=== PATIENT | male | born 1940 | race Caucasian/White ===

== ENCOUNTER 2016-08-19 11:32 | Outpatient (CLI) | payer MEDICARE, OTHER | END 2016-08-19 11:33 | disposition home or self-care (01) | DX: Z79.899 Other long term (current) drug therapy (principal); I10 Essential (primary) hypertension; E78.5 Hyperlipidemia, unspecified; R73.09 Other abnormal glucose ==

== ENCOUNTER 2017-11-04 09:29 | Outpatient (CLI) | payer MEDICARE, OTHER ==
[2017-11-04 09:46] LABS: BASOPHILS # (AUTO) 0.1 10^3/uL (0.0-0.1); BASOPHILS % (AUTO) 1.2 %; EOSINOPHILS # (AUTO) 0.5 10^3/uL (0.0-0.7); EOSINOPHILS % (AUTO) 7.8 %; HGB - HEMOGLOBIN 12.9 g/dL (14.0-18.0); LYMPHOCYTES # (AUTO) 1.1 10^3/uL (1.5-3.5); LYMPHOCYTES % (AUTO) 17.2 %; MEAN CORPUSCULAR HEMOGLOBIN 34.9 pg (27.0-31.0); MEAN CORPUSCULAR HGB CONC 33.8 g/dL (32.0-36.0); MEAN CORPUSCULAR VOLUME 103.3 fL (80.0-94.0); MEAN PLATELET VOLUME 7.3 fL (7.4-11.4); MONOCYTES # (AUTO) 0.6 10^3/uL (0.0-1.0); MONOCYTES % (AUTO) 10.3 %; NEUTROPHILS # (AUTO) 3.9 10^3/uL (1.5-6.6); NEUTROPHILS % (AUTO) 63.5 %; PLT - PLATELET COUNT 142 10^3/uL (130-450); RED CELL DISTRIBUTION WIDTH 13.6 % (12.0-15.0); WHITE BLOOD COUNT 6.2 x10^3/uL (4.8-10.8)
[2017-11-04 10:03] LABS: ALBUMIN 3.8 g/dL (3.2-5.5); ALBUMIN/GLOBULIN RATIO 1.2 (1.0-2.2); ALKALINE PHOSPHATASE 37 IU/L (42-121); ALT ALANINE AMINOTRANSFERASE 22 IU/L (10-60); AST ASPARTATE AMINOTRANSFERASE 37 IU/L (10-42); BILIRUBIN,TOTAL 1.2 mg/dL (0.2-1.0); BUN - BLOOD UREA NITROGEN 24 mg/dL (6-20); CARBON DIOXIDE - CO2 23 mmol/L (21-32); CHLORIDE 101 mmol/L (101-111); CHOL/HDL RATIO 2.2 (<5.0); CHOLESTEROL 169 mg/dL; CREATININE 1.3 mg/dL (0.6-1.2); GFR - MDRD 54 (>89); GLUCOSE 145 mg/dL (70-100); HDL CHOLESTEROL 76 mg/dL; LDL CHOLESTEROL,CALCULATED 71 mg/dL; LDL/HDL RATIO 0.9 (<3.6); SODIUM 134 mmol/L (135-145); VLDL CHOLESTEROL 22 mg/dL
[2017-11-04 10:04] LABS: HB2 TOTAL 13.5 g/dL; HEMOGLOBIN A1C 0.5 g/dL; HEMOGLOBIN A1C % 5.5 % (4.6-6.2)
== END 2017-11-04 09:30 | disposition home or self-care (01) ==
LOC: LAB 09:29
PROVIDERS: ATTEND Internal Medicine
DX: R73.01 Impaired fasting glucose (principal); D64.9 Anemia, unspecified; E78.5 Hyperlipidemia, unspecified; I50.9 Heart failure, unspecified; I11.0 Hypertensive heart disease with heart failure; Z79.899 Other long term (current) drug therapy
CPT/HCPCS: 36415; 80053; 80061; 83036; 83721; 84443; 85025

== ENCOUNTER 2018-10-08 20:32 | Outpatient (CLI) | payer MEDICARE, OTHER | END 2018-10-08 20:33 | disposition critical access hospital (66) | LOC: EMS 20:32 | PROVIDERS: ATTEND Surgery | DX: R55 Syncope and collapse (principal) | CPT/HCPCS: A0425; A0427 ==

== ENCOUNTER 2018-10-08 20:49 | Emergency (ER) | payer MEDICARE, OTHER ==
[2018-10-08] MEDS ORDERED: SODIUM CHLORIDE 0.9% 1,000 ML IV ONE (21:06)
--- NOTE | 2018-10-08 21:08 | ED Physician Documentation ---
PD HPI SYNCOPE - Stated complaint Stated Complaint: SYNCOPE, HIT HEAD - Chief complaint Chief Complaint: General - History obtained from History obtained from: Patient, EMS - History of Present Illness Witnessed: Witnessed Timing - onset: Today Duration: Seconds Preceding symptoms: None Contributing factors: Other (recent uri and standing for 20 min.) Injury occurred: Fell, Head injury Similar symptoms before: Diagnosis (orthostasis) Recently seen: Not recently seen - Additional information Additional information: 78-year-old male with a history of congestive heart failure who is on spironolactone was at the [employer] standing on the stage given the presentation when he had a syncopal episode fell to the ground and struck the back of his head. Immediately woke up and has acted normally since then. He indicates that he has had syncopal previously with standing up too quickly and having to adjust his medications to avoid this. He has recently had URI with a mild cough sympt oms of been present for 4 days and he attributes this to catching something from his second grade granddaughter. The patient had previously been on Coumadin currently on aspirin. Review of Systems Constitutional: reports: Fatigue. denies: Fever, Chills, Myalgias Eyes: denies: Decreased vision Ears: denies: Ear pain Nose: reports: Rhinorrhea / runny nose, Congestion Throat: denies: Sore throat Cardiac: denies: Chest pain / pressure, Palpitations Respiratory: reports: Cough. denies: Dyspnea GI: denies: Abdominal Pain, Nausea, Vomiting : denies: Dysuria, Frequency Skin: denies: Rash Musculoskeletal: denies: Neck pain, Back pain, Extremity pain Neurologic: reports: Syncope, Head injury. denies: Generalized weakness, Focal weakness, Numbness, Seizure, Confused, Altered mental status, Headache PD PAST MEDICAL HISTORY - Past Medical History Past Medical History: Yes Cardiovascular: Congestive heart failure, Hypertension, Atrial fibrillation - Past Surgical History Past Surgical History: No - Present Medications Home Medications: Ambulatory Orders Medication Instructions Recorded Confirmed Aspirin 81 mg PO DAILY 10/08/18 10/08/18 Carvedilol 12.5 mg PO DAILY 10/08/18 10/08/18 Lisinopril 10 mg PO DAILY 10/08/18 10/08/18 Omeprazole 20 mg PO DAILY 10/08/18 10/08/18 Pravastatin [Pravachol] 40 mg PO DAILY 10/08/18 10/08/18 Spironolactone 25 mg PO DAILY 10/08/18 10/08/18 - Allergies Allergies/Adverse Reactions: Allergies Allergy/AdvReac Type Severity Reaction Status Date / Time No Known Drug Allergies Allergy Verified 10/08/18 20:58 - Social History Does the pt smoke?: No Smoking Status: Never smoker Does the pt drink ETOH?: Yes Does the pt have substance abuse?: No PD ED PE NORMAL - Vitals Vital signs reviewed: Yes (normal ) - General General: Alert and oriented X 3, No acute distress, Well developed/nourished - HEENT HEENT: Atraumatic, PERRL, EOMI, Other (Cerumen to the left obscures the left TM) - Neck Neck: Supple, no meningeal sign, No bony TTP - Cardiac Cardiac: No murmur, Other (irregularly irregular ) - Respiratory Respiratory: No respiratory distress, Clear bilaterally - Abdomen Abdomen: Soft, Non tender - Back Back: No CVA TTP, No spinal TTP - Derm Derm: Normal color, Warm and dry, No rash - Extremities Extremities: No deformity, No edema - Neuro Neuro: Alert and oriented X 3, receiving associate 2-12 intact, No motor deficit, No sensory deficit, Normal speech Eye Opening: Spontaneous Motor: Obeys Commands Verbal: Oriented GCS Score: 15 - Psych Psych: Normal mood, Normal affect Results - Vitals Vitals: Vital Signs - 24 hr 10/08/18 10/08/18 10/08/18 20:53 21:13 21:53 Temperature 36.2 C L Heart Rate 80 73 76 Respiratory 22 16 20 Rate Blood Pressure 125/78 123/57 L 102/67 O2 Saturation 99 100 99 10/08/18 22:36 Temperature Heart Rate 72 Respiratory 18 Rate Blood Pressure 121/70 O2 Saturation 99 Oxygen O2 Source Room air - EKG (time done) 2052 Rate: Rate (enter#) (80) Rhythm: Other (ventricular bigeminy) Compare to prior EKG: Old EKG unavailable Computer interpretation: Disagree with computer (There are p-waves before complexes the rythm is not afib. Q-waves are not present in V2-5. ) - Labs Labs: Laboratory Tests 10/08/18 10/08/18 10/08/18 20:55 20:55 20:55 WBC 5.9 RBC 3.19 L Hgb 11.4 L Hct 33.7 L MCV 105.5 H MCH 35.7 H MCHC 33.8 RDW 13.4 Plt Count 147 MPV 7.4 Neut # (Auto) 3.0 Lymph # (Auto) 1.4 L [place] # (Auto) 0.7 Eos # (Auto) 0.6 Baso # (Auto) 0.2 H Absolute Nucleated RBC 0.00 Nucleated RBC % 0.0 PT 11.8 INR 1.0 Sodium 135 Potassium 5.0 Chloride 102 Carbon Dioxide 21 Anion Gap 12.0 BUN 27 H Creatinine 1.6 H Estimated GFR (MDRD) 42 L Glucose 127 H Calcium 8.6 Total Bilirubin 0.7 AST 34 ALT 17 Alkaline Phosphatase 40 L Troponin I Total Protein 6.9 Albumin 3.6 Globulin 3.3 Albumin/Globulin Ratio 1.1 Lipase 55 H Urine Color Urine Clarity Urine pH Ur Specific [place] Urine Protein Urine Glucose (UA) Urine Ketones Urine Occult Blood Urine Nitrite Urine Bilirubin Urine Urobilinogen Ur Leukocyte Esterase Ur Microscopic Review Urine Culture Comments 10/08/18 10/08/18 20:55 22:00 WBC RBC Hgb Hct MCV MCH MCHC RDW Plt Count MPV Neut # (Auto) Lymph # (Auto) [place] # (Auto) Eos # (Auto) Baso # (Auto) Absolute Nucleated RBC Nucleated RBC % PT INR Sodium Potassium Chloride Carbon Dioxide Anion Gap BUN Creatinine Estimated GFR (MDRD) Glucose Calcium Total Bilirubin AST ALT Alkaline Phosphatase Troponin I < 0.04 Total Protein Albumin Globulin Albumin/Globulin Ratio Lipase Urine Color YELLOW Urine Clarity CLEAR Urine pH 6.0 Ur Specific [place] 1.020 Urine Protein NEGATIVE Urine Glucose (UA) NEGATIVE Urine Ketones TRACE Urine Occult Blood NEGATIVE Urine Nitrite NEGATIVE Urine Bilirubin NEGATIVE Urine Urobilinogen 0.2 (NORMAL) Ur Leukocyte Esterase NEGATIVE Ur Microscopic Review NOT INDICATED Urine Culture Comments NOT INDICATED - Rads (name of study) 1 veiw chest Radiology: Prelim report reviewed (Impression: Cardiomegaly, otherwise unremarkable single view chest.), EMP read indepedently, See rad report Procedures - IVC sono (time) 2100 Bedside IVC sono: IVC measures (cm) (1.20), IVC collapsed c insp (cm) (complete), Dehydration (est 1 liter deficit) Departure - Departure Disposition: 01 Home, Self Care Clinical Impression: Dehydration, Syncope and collapse Instructions: ED Dehydration, ED Syncope Vasovagal Follow-Up: Jack Edwards MD [Primary Care Provider] -
[2018-10-08 21:17] LABS: BASOPHILS # (AUTO) 0.2 10^3/uL (0.0-0.1); BASOPHILS % (AUTO) 3.2 %; EOSINOPHILS # (AUTO) 0.6 10^3/uL (0.0-0.7); EOSINOPHILS % (AUTO) 10.3 %; HGB - HEMOGLOBIN 11.4 g/dL (14.0-18.0); LYMPHOCYTES # (AUTO) 1.4 10^3/uL (1.5-3.5); LYMPHOCYTES % (AUTO) 23.2 %; MEAN CORPUSCULAR HEMOGLOBIN 35.7 pg (27.0-31.0); MEAN CORPUSCULAR HGB CONC 33.8 g/dL (32.0-36.0); MEAN CORPUSCULAR VOLUME 105.5 fL (80.0-94.0); MEAN PLATELET VOLUME 7.4 fL (7.4-11.4); MONOCYTES # (AUTO) 0.7 10^3/uL (0.0-1.0); MONOCYTES % (AUTO) 11.6 %; NEUTROPHILS % (AUTO) 51.7 %; PLT - PLATELET COUNT 147 10^3/uL (130-450); RED BLOOD COUNT 3.19 10^6/uL (4.70-6.10); RED CELL DISTRIBUTION WIDTH 13.4 % (12.0-15.0); WHITE BLOOD COUNT 5.9 x10^3/uL (4.8-10.8)
[2018-10-08 21:22] LABS: PT - PROTHROMBIN TIME 11.8 secs (9.9-12.6)
[2018-10-08 21:29] LABS: ALBUMIN 3.6 g/dL (3.2-5.5); ALBUMIN/GLOBULIN RATIO 1.1 (1.0-2.2); BILIRUBIN,TOTAL 0.7 mg/dL (0.2-1.0); CALCIUM 8.6 mg/dL (8.5-10.3); CREATININE 1.6 mg/dL (0.6-1.2); TOTAL PROTEIN 6.9 g/dL (6.7-8.2)
--- NOTE | 2018-10-08 21:56 | XRAY Report ---
Reason: cough syncope Procedure Date: 10/08/2018 Accession Number: [id number] / [id number] Procedure: XR - Chest 1 View X-Ray CPT Code: 70356 FULL RESULT: EXAM: CHEST RADIOGRAPHY EXAM DATE: 10/08/2018 09:39 PM. CLINICAL HISTORY: Cough. Syncope. COMPARISON: None. TECHNIQUE: 1 view. FINDINGS: Lungs/Pleura: No focal opacities evident. No pleural effusion. No pneumothorax. Mediastinum: Large heart. Other: No bony abnormality identified. IMPRESSION: Cardiomegaly, otherwise unremarkable single view chest. RADIA
[2018-10-08 22:22] LABS: BILIRUBIN,URINE NEGATIVE (NEGATIVE); GLUCOSE, URINE (UA) NEGATIVE (NEGATIVE); KETONES,URINE (UA) TRACE mg/dL (NEGATIVE); LEUKOCYTE ESTERASE, URINE NEGATIVE (NEGATIVE); NITRITE,URINE NEGATIVE (NEGATIVE); OCCULT BLOOD,URINE NEGATIVE (NEGATIVE); PROTEIN,URINE NEGATIVE (NEGATIVE); UROBILINOGEN,URINE 0.2 (NORMAL) E.U./dL (NORMAL)
[2018-10-08 22:31] LABS: CLARITY,URINE CLEAR (CLEAR)
[2018-10-08 22:38] VITALS: BP 121/70
== END 2018-10-08 23:06 | disposition home or self-care (01) ==
LOC: EDUNIT# → ED 20:49
DX: E86.0 Dehydration (principal); R55 Syncope and collapse; I11.0 Hypertensive heart disease with heart failure; I50.9 Heart failure, unspecified; Z86.79 Personal history of other diseases of the circulatory system
CPT/HCPCS: 36415; 71045; 80053; 81001; 81003; 83690; 84484; 85025; 85610; 87086; 93005; 96360; 99284

== ENCOUNTER 2020-02-15 13:51 | Outpatient (CLI) | payer MEDICARE, OTHER | END 2020-02-15 13:52 | disposition EMS.NT | LOC: EMS 13:51 | PROVIDERS: ATTEND Surgery | DX: R55 Syncope and collapse (principal) ==

== ENCOUNTER 2020-08-21 22:30 | Outpatient (CLI) | payer MEDICARE, OTHER ==
--- OUTSIDE RECORDS SUMMARY | 2020-08-28 01:08 | EXTERNAL MEDICAL SUMMARY RPT | Continuity of Care Document ---
:1940 Demographics Phone Unavailable Preferred Language Unknown Marital Status Unknown [employer] Affiliation Unknown Race Unknown Ethnic Group Unknown Author Organization [facility] Address [address] [place] [address] Phone Care Team Providers Name Role Phone Roof Unavailable Unavailable Problems date description facility 2013-03-23 10:04 ANEMIA NOS Located within [facility] 2013-03-23 10:04 BENIGN HYPERTENSION [facility] 2013-03-23 10:04 CONGESTIVE HEART FAILURE NOS [facility] 2013-03-23 10:04 OTH MED,LT,CURRENT USE [facility] 2013-03-27 16:57 OTHER ABNORMAL GLUCOSE [facility] 2014-05-16 09:27 HYPERLIPIDEMIA NEC/NOS [facility] 2014-05-16 09:27 HYPERTENSION NOS Located within [facility] 2014-05-16 09:27 CONGESTIVE HEART FAILURE NOS [facility] 2014-05-16 09:27 OTH MED,LT,CURRENT USE [facility] 2014-05-16 09:27 ROUTINE MEDICAL EXAM [facility] 2014-05-16 09:27 SCREEN MAL NEOP-PROSTATE [facility] 2015-07-18 09:44 HYPERLIPIDEMIA, UNSPECIFIED [facility] 2015-07-18 09:44 HEART FAILURE, UNSPECIFIED Merged with [facility] 2015-07-18 09:44 OTHER ABNORMAL GLUCOSE [facility] 2015-07-18 09:44 OTHER DETENTION (CURRENT) DRUG [facility] 2016-08-19 11:32 HYPERLIPIDEMIA, UNSPECIFIED [facility] 2016-08-19 11:32 ESSENTIAL (PRIMARY) HYPERTENSION [facility] 2016-08-19 11:32 OTHER ABNORMAL GLUCOSE [facility] 2016-08-19 11:32 OTHER DETENTION (CURRENT) DRUG [facility] THER[facility] 2017-11-04 09:29 ANEMIA, UNSPECIFIED [facility] 2017-11-04 09:29 HYPERLIPIDEMIA, UNSPECIFIED [facility] 2017-11-04 09:29 HYPERTENSIVE HEART DISEASE WITH [facility] HEART FAILURE 2017-11-04 09:29 HEART FAILURE, UNSPECIFIED Merged with [facility] 2017-11-04 09:29 IMPAIRED FASTING GLUCOSE [facility] 2017-11-04 09:29 OTHER [employer] (CURRENT) DRUG [facility] THERAP[facility] 2018-10-08 20:49 DEHYDRATION Located within [facility] 2018-10-08 20:49 HYPERTENSIVE HEART DISEASE WITH [facility] HEART FAILURE 2018-10-08 20:49 HEART FAILURE, UNSPECIFIED Merged with [facility] 2018-10-08 20:49 SYNCOPE AND COLLAPSE [facility] 2018-10-08 20:49 PERSONAL HISTORY OF OTHER DISEASES [facility] 2020-08-21 22:35 ALCOHOL USE, UNSPECIFIED WITH [facility] INTOXICATION, UNCOMP 2020-08-21 22:35 HYPERTENSIVE HEART DISEASE WITH [facility] HEART FAILURE 2020-08-21 22:35 UNSPECIFIED ATRIAL FIBRILLATION [facility] 2020-08-21 22:35 HEART FAILURE, UNSPECIFIED Merged with [facility] 2020-08-21 22:35 OTHER HYPOTENSION Located within [facility] 2020-08-21 22:35 ABRASION OF NOSE, INITIAL [facility] ENCOUNTER 2020-08-21 22:35 FALL ON SAME LEVEL, UNSPECIFIED, [facility] INITIAL ENCOUNTER 2020-08-21 22:[address] [facility] NON-INSTITUT [facility] (PRIVATE) RESIDENC Allergies date description facility GARLIC [facility] YELLOW DYE [facility] ADHESIVE TAPE-SILICONES [facility] ALCOHOL [facility] ASPIRIN [facility] AZ[facility]ROMYCIN [facility] BANDAGES, COHESIVE [facility] CLINDAMYCIN [facility] DEXLANSOPRAZOLE [facility] DOXAZOSIN MESYLATE [facility] HYDRALAZINE [facility] LATEX [facility] LISINOPRIL [facility] LOSARTAN POTASSIUM [facility] MEPERIDINE HCL [facility] MITE EXTRACT [facility] NAPROXEN SODIUM [facility] NSAIDS (NON-STEROIDAL ANTI-INFLAMMATORY DRUG) [facility] PHENAZOPYRIDINE [facility]CL [facility] POLLEN EXTRACTS [facility] POLYESTER [facility] PREDNISONE [facility] PREGABALIN [facility] QUINAPRIL [facility] [id number] REDUCTASE INHIBITORS [facility] TERAZOSIN [facility] TROVAFLOXACIN MESYLATE [facility] VENLAFAXINE [facility] WINE SPIRIT [facility] NO KNOWN ALLERGIES [facility] FLAVORING AGENT [facility] SOYBEAN [facility] GENEVA INHIBITORS [facility] PENICILLINS [facility] SULFA (SULFONAMIDE ANTIBIOTICS) [facility] PROCHLORPERAZINE [facility] SHRIMP [facility] METOPROLOL [facility] G[facility]APENTIN [facility] CLONIDINE [facility] MEPERIDINE [facility] LISINOPRIL [facility] PNEUMOCOCCAL VACCINE [facility] No Known Drug Allergies [facility] No Known Drug Allergies [facility] Results Social History date description facility [id number]
== END 2020-08-21 22:31 | disposition critical access hospital (66) ==
LOC: EMS 22:30
PROVIDERS: ATTEND Surgery
DX: S00.31XA Abrasion of nose, initial encounter (principal); W18.30XA Fall on same level, unspecified, initial encounter; Y93.89 Activity, other specified; Y92.009 Unspecified place in unspecified non-institutional (private) residence as the place of occurrence of the external cause
CPT/HCPCS: A0425; A0429

== ENCOUNTER 2020-08-21 22:35 | Emergency (ER) | payer MEDICARE, OTHER ==
[2020-08-21] MEDS ORDERED: SODIUM CHLORIDE 0.9% 500 ML IV STA (23:41)
[2020-08-21 23:53] LABS: BASOPHILS # (AUTO) 0.1 10^3/uL (0.0-0.1); BASOPHILS % (AUTO) 1.2 %; EOSINOPHILS # (AUTO) 0.9 10^3/uL (0.0-0.7); EOSINOPHILS % (AUTO) 16.1 %; HCT - HEMATOCRIT 30.6 % (42.0-52.0); HGB - HEMOGLOBIN 10.1 g/dL (14.0-18.0); LYMPHOCYTES # (AUTO) 1.2 10^3/uL (1.5-3.5); LYMPHOCYTES % (AUTO) 21.1 %; MEAN CORPUSCULAR HEMOGLOBIN 34.4 pg (27.0-31.0); MEAN CORPUSCULAR VOLUME 104.1 fL (80.0-94.0); MEAN PLATELET VOLUME 9.9 fL (7.4-11.4); MONOCYTES # (AUTO) 0.7 10^3/uL (0.0-1.0); MONOCYTES % (AUTO) 12.7 %; NEUTROPHILS # (AUTO) 2.9 10^3/uL (1.5-6.6); NEUTROPHILS % (AUTO) 48.7 %; PLT - PLATELET COUNT 179 10^3/uL (130-450); RED BLOOD COUNT 2.94 10^6/uL (4.70-6.10); RED CELL DISTRIBUTION WIDTH 13.9 % (12.0-15.0); WHITE BLOOD COUNT 5.8 x10^3/uL (4.8-10.8)
[2020-08-22 00:05] LABS: ALBUMIN 3.2 g/dL (3.2-5.5); ALBUMIN/GLOBULIN RATIO 1.1 (1.0-2.2); BILIRUBIN,TOTAL 0.5 mg/dL (0.2-1.0); CALCIUM 8.2 mg/dL (8.5-10.3); CREATININE 1.2 mg/dL (0.6-1.2); ETOH - ETHANOL 319.5 mg/dL; MAGNESIUM 1.8 mg/dL (1.7-2.8); POTASSIUM 5.2 mmol/L (3.5-5.0); TOTAL PROTEIN 6.1 g/dL (6.7-8.2)
--- NOTE | 2020-08-22 02:03 | ED Physician Documentation ---
PD HPI Fall - Stated complaint Stated Complaint: GLF - Chief complaint Chief Complaint: Trauma Hd/Nk - History obtained from History obtained from: Patient - History of Present Illness Mechanism of injury: Lost balance (he states he had to go to bathroom abruptly and was walking fast to bathroom, lost balance and fell forward. Does admit to having 2 bottles of wine (shared with his ). landed forward onto hands and knees, and glasses caused abrasion bridge of nose. He could not get up easily so called EMS.) Fall distance: Standing position Where injury occurred: Home Timing - onset: How many minutes ago (30), Today Injury(ies) location: Face (abrasion bridge of nose.). No: Head, Neck, Chest, Abdomen Associated symptoms: Other (he had been going to [place] for BM, and could not hold it long after falling, so had large BM on bottom and down thigh. No melena nor blood in it.). No: LOC, AMS, Weakness, Nausea / vomiting Worsens with: No: Movement, Palpation Contributing factors: Intoxicated, Other (he says he had not been taking fluid well recently and feels dehydrated. Has been taking meds normally.). No: Anticoagulated Similar symptoms before: Has not had sx before Recently seen: Not recently seen Review of Systems Constitutional: denies: Fever, Chills Nose: denies: Rhinorrhea / runny nose, Congestion Throat: denies: Sore throat Respiratory: denies: Cough GI: denies: Abdominal Pain, Nausea, Vomiting, Diarrhea (had large soft BM this evening [employer].) : denies: Dysuria Neurologic: denies: Generalized weakness, Focal weakness, Numbness, Near syncope, Altered mental status, Head injury Endocrine: denies: Weight loss PD PAST MEDICAL HISTORY - Past Medical History Past Medical History: Yes Cardiovascular: Congestive heart failure, Hypertension, Atrial fibrillation Neuro: None Endocrine/Autoimmune: None - Past Surgical History Past Surgical History: No - Present Medications Home Medications: Ambulatory Orders Medication Instructions Recorded Confirmed Aspirin 81 mg PO DAILY 10/08/18 08/22/20 Omeprazole 20 mg PO DAILY 10/08/18 08/22/20 Pravastatin [Pravachol] 40 mg PO DAILY 10/08/18 08/22/20 Spironolactone 25 mg PO DAILY 10/08/18 08/22/20 carvediloL [Carvedilol] 12.5 mg PO DAILY 10/08/18 08/22/20 lisinopriL [Lisinopril] 10 mg PO DAILY 10/08/18 08/22/20 - Allergies Allergies/Adverse Reactions: Allergies Allergy/AdvReac Type Severity Reaction Status Date / Time No Known Drug Allergies Allergy Verified 08/22/20 00:18 - Social History Does the pt smoke?: No Smoking Status: Never smoker Does the pt drink ETOH?: Yes Does the pt have substance abuse?: No PD ED PE NORMAL - Vitals Vital signs reviewed: Yes (BP mildly hypotensive, though he denies lightheade dness.) - General General: Alert and oriented X 3, No acute distress, Well developed/nourished, Other (smiling and happy. Denies any injury aside from nose. He says he just needed help getting up from [facility]. ) - HEENT HEENT: Atraumatic (just abrasion bridge of nose with tenderness nor deformity. ), PERRL, EOMI - Neck Neck: Supple, no meningeal sign, No bony TTP, No adenopathy - Cardiac Cardiac: RRR, No murmur - Respiratory Respiratory: Clear bilaterally - Abdomen Abdomen: Soft, Non tender - Male Male : Deferred - Rectal Rectal: Other (had smeared soft stool on bottom and thighs that ER Techs cleaned up. No noted blood nor melena appearance. ) - Derm Derm: Normal color, Warm and dry - Extremities Extremities: Normal ROM s pain, No edema, No calf tenderness / cord - Neuro Neuro: Alert and oriented X 3, No motor deficit, No sensory deficit, Normal speech Results - Vitals Vitals: Vital Signs - 24 hr 08/21/20 08/22/20 08/22/20 22:40 00:30 02:10 Temperature 36.2 C L Heart Rate 92 79 67 Respiratory 18 16 21 Rate Blood Pressure 101/63 102/59 L 91/67 O2 Saturation 100 95 92 08/22/20 02:43 Temperature Heart Rate 80 Respiratory 22 Rate Blood Pressure 111/79 O2 Saturation 94 Oxygen O2 Source Room air - Labs Labs: Laboratory Tests 08/21/20 08/21/20 23:50 23:50 WBC 5.8 RBC 2.94 L Hgb 10.1 L Hct 30.6 L MCV 104.1 H MCH 34.4 H MCHC 33.0 RDW 13.9 Plt Count 179 MPV 9.9 Neut # (Auto) 2.9 Lymph # (Auto) 1.2 L [place] # (Auto) 0.7 Eos # (Auto) 0.9 H Baso # (Auto) 0.1 Absolute Nucleated RBC 0.00 Nucleated RBC % 0.0 Sodium 135 Potassium 5.2 H Chloride 106 Carbon Dioxide 20 L Anion Gap 9.0 BUN 17 Creatinine 1.2 Estimated GFR (MDRD) 58 L Glucose 96 Calcium 8.2 L Magnesium 1.8 Total Bilirubin 0.5 AST 26 ALT 11 Alkaline Phosphatase 47 Total Protein 6.1 L Albumin 3.2 Globulin 2.9 Albumin/Globulin Ratio 1.1 Ethyl Alcohol 319.5 PD MEDICAL DECISION MAKING - ED course Complexity details: reviewed results, re-evaluated patient (BP improved to 111/79 with IV fluids. He feels okay sitting and standing. ), considered differential (soundslike mechanical fall with intoxication. No noted injury except abrasion nose. BP low but could be hydration. It did improve with IV fluids. Consider holding BP med for now. ), d/w patient Departure - Departure Disposition: 01 Home, Self Care Clinical Impression: Hypotension due to hypovolemia Fall from slip, trip, or stumble Qualifiers: Encounter type: initial encounter Qualified Code(s): W01.0XXA - Fall on same level from slipping, tripping and stumbling without subsequent striking against object, initial encounter Nose abrasion Qualifiers: Encounter type: initial encounter Qualified Code(s): S00.31XA - Abrasion of nose, initial encounter Alcohol intoxication Qualifiers: Complication of substance-induced condition: uncomplicated Qualified Code(s): F10.920 - Alcohol use, unspecified with intoxication, uncomplicated Condition: Stable Record reviewed to determine appropriate education?: Yes Comments: You do not appear to have any significant injuries from the fall. Your alcohol level was elevated, please avoid excessive amounts of alcohol. Your blood pressure was mildly low though you seem well awake and alert with it. I presume this is from low hydration. Stay well-hydrated but avoid salty foods. I would hold your lisinopril for the next several days and see how your blood pressure does. Talk with your primary care early next week about whether to resume it or not. Discharge Date/Time: 08/22/20 03:02
[2020-08-22] MEDS ORDERED: SODIUM CHLORIDE 0.9% 1,000 ML IV STA (02:21)
[2020-08-22 02:44] VITALS: BP 111/79
--- OUTSIDE RECORDS SUMMARY | 2020-08-28 00:55 | EXTERNAL MEDICAL SUMMARY RPT | Continuity of Care Document ---
:1940 Demographics Phone Unavailable Preferred Language Unknown Marital Status Unknown Mosque Affiliation Unknown Race Unknown Ethnic Group Unknown Author Organization [place] Address [address] [place] [address] Phone Care Team Providers Name Role Phone Roof Unavailable Unavailable Problems date description facility 2013-03-23 10:04 ANEMIA NOS [facility] 2013-03-23 10:04 BENIGN HYPERTENSION [facility] 2013-03-23 10:04 CONGESTIVE HEART FAILURE NOS [facility] 2013-03-23 10:04 OTH MED,LT,CURRENT USE [facility] 2013-03-27 16:57 OTHER ABNORMAL GLUCOSE [facility] 2014-05-16 09:27 HYPERLIPIDEMIA NEC/NOS [facility] 2014-05-16 09:27 HYPERTENSION NOS [facility] 2014-05-16 09:27 CONGESTIVE HEART FAILURE NOS [facility] 2014-05-16 09:27 OTH MED,LT,CURRENT USE [facility] 2014-05-16 09:27 ROUTINE MEDICAL EXAM Merged with [facility] 2014-05-16 09:27 SCREEN MAL NEOP-PROSTATE [facility] 2015-07-18 09:44 HYPERLIPIDEMIA, [facility]PECIFIED [facility] 2015-07-18 09:44 HEART FAILURE, UNSPECIFIED [facility] 2015-07-18 09:44 OTHER ABNORMAL GLUCOSE [facility] 2015-07-18 09:44 OTHER RETIREMENT (CURRENT) DRUG [facility] 2016-08-19 11:32 HYPERLIPIDEMIA, UNSPECIFIED [facility] 2016-08-19 11:32 ESSENTIAL (PRIMARY) HYPERTENSION [facility] 2016-08-19 11:32 OTHER ABNORMAL GLUCOSE [facility] 2016-08-19 11:32 OTHER RETIREMENT (CURRENT) DRUG [facility] 2017-11-04 09:29 ANEMIA, UNSPECIFIED [facility] 2017-11-04 09:29 HYPERLIPIDEMIA, UNSPECIFIED [facility] 2017-11-04 09:29 HYPERTENSIVE HEART DISEASE WITH [facility] HEART FAILURE 2017-11-04 09:29 HEART FAILURE, UNSPECIFIED [facility] 2017-11-04 09:29 IMPAIRED FASTING GLUCOSE [facility] 2017-11-04 09:29 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 [facility] 2018-10-08 20:49 DEHYDRATION [facility] 2018-10-08 20:49 HYPERTENSIVE HEART DISEASE WITH [facility] HEART FAILURE 2018-10-08 20:49 HEART FAILURE, UNSPECIFIED [facility] 2018-10-08 20:49 SYNCOPE AND COLLAPSE [facility] 2018-10-08 20:49 PERSONAL HISTORY OF OTHER DISEASES [facility] 2020-08-21 22:35 ALCOHOL USE, UNSPECIFIED WITH [facility] INTOXICATION, UNCOMP 2020-08-21 22:35 HYPERTENSIVE HEART DISEASE WITH [facility] HEART FAILURE 2020-08-21 22:35 UNSPECIFIED ATRIAL FIBRILLATION [facility] 2020-08-21 22:35 HEART FAILURE, UNSPECIFIED [facility] 2020-08-21 22:35 OTHER HYPOTENSION [facility] 2020-08-21 22:35 ABRASION OF NOSE, INITIAL [facility] ENCOUNTER 2020-08-21 22:35 FALL ON SAME LEVEL, UNSPECIFIED, [facility] INITIAL ENCOUNTER 2020-08-21 22:[address] [facility] NON-INSTITUT [facility] (PRIVATE) RESIDENC Allergies date description facility GARLIC [facility] YELLOW DYE [facility] ADHESIVE TAPE-SILICONES [facility] ALCOHOL [facility]IRIN [facility]CIN [facility] BANDAGES, COHESIVE [facility] CLINDAMYCIN [facility] DEXLANSOPRAZOLE [facility] DOXAZOSIN MESYLATE [facility] HYDRALAZINE [facility] LATEX [facility] LISINOPRIL [facility] LOSARTAN POTASSIUM [facility] MEPERIDINE [facility] MITE EXTRACT [facility] NAPROXEN SODIUM [facility] NSAIDS (NON-STEROIDAL ANTI-INFLAMMATORY DRUG) [facility] PHENAZOPYRIDINE [facility]CL [facility] POLLEN EXTRACTS [facility] POLYESTER [facility] PREDNISONE [facility] PREGABALIN [facility] QUINAPRIL [facility] [id number] REDUCTASE INHIBITORS [facility] TERAZOSIN [facility] TROVAFLOXACIN MESYLATE [facility] VENLAFAXINE [facility] WINE SPIRIT [facility] NO KNOWN ALLERGIES [facility] FLAVORING AGENT [facility] SOYBEAN [facility] GENEVA INHIBITORS [facility] PENICILLINS [facility] SULFA (SULFONAMIDE ANTIBIOTICS) [facility] PROCHLORPERAZINE [facility] SHRIMP [facility] METOPROLOL [facility] G[facility]APENTIN [facility] CLONIDINE [facility] MEPERIDINE [facility] L[facility]OPRIL [facility] PNEUMOCOCCAL VACCINE [facility] No Known Drug Allergies [facility] No Known Drug Allergies [facility] Results Social History date description facility [id number]
== END 2020-08-22 03:02 | disposition home or self-care (01) ==
LOC: EDUNIT# → ED 22:35
DX: S00.31XA Abrasion of nose, initial encounter (principal); F10.920 Alcohol use, unspecified with intoxication, uncomplicated; W18.30XA Fall on same level, unspecified, initial encounter; Y92.009 Unspecified place in unspecified non-institutional (private) residence as the place of occurrence of the external cause; I95.89 Other hypotension; I48.91 Unspecified atrial fibrillation; I11.0 Hypertensive heart disease with heart failure; I50.9 Heart failure, unspecified
CPT/HCPCS: 36415; 80053; 80320; 83735; 85025; 96360; 99284

== ENCOUNTER 2021-12-07 13:45 | Outpatient (CLI) | payer MEDICARE, OTHER | END 2021-12-07 13:46 | disposition critical access hospital (66) | LOC: EMS 13:45 | DX: R07.81 Pleurodynia (principal); W01.0XXA Fall on same level from slipping, tripping and stumbling without subsequent striking against object, initial encounter; Y93.01 Activity, walking, marching and hiking; Y92.009 Unspecified place in unspecified non-institutional (private) residence as the place of occurrence of the external cause | CPT/HCPCS: A0425; A0429 ==

== ENCOUNTER 2021-12-07 13:50 | Emergency (ER) | payer MEDICARE, OTHER ==
--- NOTE | 2021-12-07 14:09 | ED Physician Documentation ---
PD HPI MAJOR TRAUMA - Stated complaint Stated Complaint: GLF - Chief complaint Chief Complaint: Trauma Ch/Bk - History obtained from History obtained from: Patient, EMS - Additional information Additional information: 81-year-old gentleman with history of CHF, otherwise healthy. Wednesday around 3:30 in the morning he was going to the bathroom and fell on his way into the bathroom. He landed against a dresser injuring the left side of his ribs. He was having a lot of pain and was able to manage to get back into bed where he is late ever since. Has not had anything to eat or drink because he could not get out of bed due to the pain. He is and lives with his but she is unable to help because of her recent medical procedure of her own. He denies any other injuries. Review of Systems Ten Systems: 10 systems reviewed and negative Constitutional: denies: Fever, Chills Nose: denies: Rhinorrhea / runny nose Cardiac: reports: Chest pain / pressure. denies: Palpitations Respiratory: denies: Dyspnea, Cough GI: reports: Abdominal Pain. denies: Nausea, Vomiting Musculoskeletal: denies: Neck pain Neurologic: denies: Headache, Head injury, LOC PD PAST MEDICAL HISTORY - Past Medical History Cardiovascular: Congestive heart failure, Hypertension, Atrial fibrillation Neuro: None Endocrine/Autoimmune: None - Past Surgical History Past Surgical History: No - Present Medications Home Medications: Ambulatory Orders Medication Instructions Recorded Confirmed Aspirin 81 mg PO DAILY 10/08/18 12/07/21 Omeprazole 20 mg PO DAILY 10/08/18 12/07/21 Pravastatin [Pravachol] 40 mg PO DAILY 10/08/18 12/07/21 Spironolactone 25 mg PO DAILY 10/08/18 12/07/21 carvediloL [Carvedilol] 50 mg PO DAILY 10/08/18 12/07/21 lisinopriL [Lisinopril] 10 mg PO DAILY 10/08/18 12/07/21 Multivitamin 1 each PO DAILY 12/07/21 12/07/21 - Allergies Allergies/Adverse Reactions: Allergies Allergy/AdvReac Type Severity Reaction Status Date / Time No Known Drug Allergies Allergy Verified 12/07/21 14:03 - Social History Does the pt smoke?: No Smoking Status: Never smoker Does the pt drink ETOH?: Yes Does the pt have substance abuse?: No PD ED PE NORMAL - Vitals Vital signs reviewed: Yes - General General: Alert and oriented X 3, No acute distress - HEENT HEENT: PERRL, EOMI - Neck Neck: Supple, no meningeal sign, No bony TTP - Cardiac Cardiac: RRR, No murmur - Respiratory Respiratory: No respiratory distress, Clear bilaterally, Other (He has significant bruising from the nipple line laterally on the left chest wall down to the left mid abdomen with significant rib tenderness on the lateral left side and some left upper quadrant tenderness.) - Abdomen Abdomen: Normal bowel sounds, Soft - Back Back: No CVA TTP, No spinal TTP - Derm Derm: Normal color, Warm and dry - Extremities Extremities: No deformity, No tenderness to palpate, Normal ROM s pain, No edema, No calf tenderness / cord, Other (Skin tear on the left elbow and left knee, full range of motion in all major joints without pain or bony tenderness.) - Neuro Neuro: Alert and oriented X 3, Normal speech Results - Vitals Vitals: Vital Signs - 24 hr 12/07/21 12/07/21 14:01 14:56 Temperature 37.1 C Heart Rate 59 L 63 Respiratory 18 22 Rate Blood Pressure 115/75 100/63 O2 Saturation 99 96 Oxygen O2 Source Room air - Labs Labs: Laboratory Tests 12/07/21 12/07/21 12/07/21 14:22 14:22 14:37 WBC 6.7 RBC 2.86 L Hgb 10.5 L Hct 29.7 L MCV 103.8 H MCH 36.7 H MCHC 35.4 RDW 12.6 Plt Count 128 L MPV 9.8 Neut # (Auto) 5.5 Lymph # (Auto) 0.4 L [place] # (Auto) 0.7 Eos # (Auto) 0.0 Baso # (Auto) 0.0 Absolute Nucleated RBC 0.00 Nucleated RBC % 0.0 Sodium 133 L Potassium 4.9 Chloride 98 L Carbon Dioxide 19 L Anion Gap 16.0 H BUN 26 H Creatinine 1.3 H Estimated GFR (MDRD) 53 L Glucose 134 H Calcium 9.1 Total Bilirubin 1.4 H AST 46 H ALT 18 Alkaline Phosphatase 40 L Total Creatine Kinase 354 H Total Protein 6.9 Albumin 3.4 Globulin 3.5 Albumin/Globulin Ratio 1.0 SARS-CoV-2 (PCR) NOT DETECTED PD MEDICAL DECISION MAKING - ED course ED course: 81-year-old gentleman who fell 2 nights ago and has been in bed ever since. His was having an eye surgery and was at another house recovering and as such it took quite some time for him to be found. He is in severe pain and has mild rhabdomyolysis with acute kidney injury. CT imaging demonstrates a left lateral fifth through eighth rib fractures and left posterior seventh and eighth rib fractures, note that this does constitute a flail chest. He has a small amount of hemothorax and small pulmonary contusion with this. No evidence of splenic injury. Given the injuries and advanced age I think would be best for him to go to a level 1 trauma center and he is agreeable and [facility] was called at around 4:40 PM for transfer. I did update his by phone with his permission. She relays that he is an alcoholic. He was excepted to the [facility] ED at 4:[address] Rainer Tejeda. Cobras are completed and he is stable for transport. Departure - Departure Disposition: 02 Transfer Acute Care Hosp Clinical Impression: Hemothorax, Pulmonary contusion Flail chest Qualifiers: Encounter type: initial encounter Fracture type: closed Qualified Code(s): S22.5XXA - Flail chest, initial encounter for closed fracture Fall from slip, trip, or stumble Qualifiers: Encounter type: initial encounter Qualified Code(s): W01.0XXA - Fall on same level from slipping, tripping and stumbling without subsequent striking against object, initial encounter Condition: Serious
[2021-12-07] MEDS: SODIUM CHLORIDE 0.9% 1,000 ML IV STA ×2 (14:26→18:50)
[2021-12-07] MEDS: MORPHINE 2 MG/ML CARPUJECT IVP STA (14:30)
[2021-12-07 14:41] LABS: BASOPHILS % (AUTO) 0.4 %; EOSINOPHILS % (AUTO) 0.3 %; HCT - HEMATOCRIT 29.7 % (42.0-52.0); HGB - HEMOGLOBIN 10.5 g/dL (14.0-18.0); LYMPHOCYTES # (AUTO) 0.4 10^3/uL (1.5-3.5); LYMPHOCYTES % (AUTO) 6.4 %; MEAN CORPUSCULAR HEMOGLOBIN 36.7 pg (27.0-31.0); MEAN CORPUSCULAR HGB CONC 35.4 g/dL (32.0-36.0); MEAN CORPUSCULAR VOLUME 103.8 fL (80.0-94.0); MEAN PLATELET VOLUME 9.8 fL (7.4-11.4); MONOCYTES # (AUTO) 0.7 10^3/uL (0.0-1.0); MONOCYTES % (AUTO) 10.3 %; NEUTROPHILS # (AUTO) 5.5 10^3/uL (1.5-6.6); NEUTROPHILS % (AUTO) 82.3 %; PLT - PLATELET COUNT 128 10^3/uL (130-450); RED BLOOD COUNT 2.86 10^6/uL (4.70-6.10); RED CELL DISTRIBUTION WIDTH 12.6 % (12.0-15.0); WHITE BLOOD COUNT 6.7 x10^3/uL (4.8-10.8)
[2021-12-07 14:53] LABS: ALBUMIN 3.4 g/dL (3.2-5.5); BILIRUBIN,TOTAL 1.4 mg/dL (0.2-1.0); CALCIUM 9.1 mg/dL (8.5-10.3); CREATININE 1.3 mg/dL (0.6-1.2); POTASSIUM 4.9 mmol/L (3.5-5.0); TOTAL PROTEIN 6.9 g/dL (6.7-8.2)
[2021-12-07] MEDS ORDERED: IOVERSOL 320 50 ML VIAL ONE (15:04)
[2021-12-07] MEDS: IOVERSOL 320 50 ML VIAL IVP ONE (15:27)
--- NOTE | 2021-12-07 16:19 | CT Report ---
PROCEDURE: CT abdomen and pelvis with contrast INDICATIONS: Left-sided trauma, pain CONTRAST: IV CONTRAST: Optiray 320 ml: 100 PO CONTRAST: *NO PO CONTRAST TECHNIQUE: After the administration of contrast, 5 mm thick sections acquired from the diaphragms to the sym physis. 5 mm thick coronal and sagittal reformats were acquired. For radiation dose reduction, the following was used: automated exposure control, adjustment of mA and/or kV according to patient size . COMPARISON: None. FINDINGS: Image quality: Excellent. ABDOMEN: Lung bases: Lung bases are clear. Heart size is enlarged. Left nondisplaced seventh rib fracture a ssociated with adjacent soft tissue swelling. Left basilar pleural effusion and compressive atelectas is noted as well. Solid organs: Liver and spleen are normal in size and enhancement other than hepatic fatty infiltrat ion. Gallbladder unremarkable. Biliary system is non dilated. Pancreas enhances normally. No adre nal nodules. Kidneys demonstrate normal size and enhancement, without hydronephrosis. Small subcent imeter renal cysts present. Peritoneum and bowel: Bowel loops demonstrate normal wall thickness and caliber. No free fluid or a ir. Nodes and vessels: No retroperitoneal or mesenteric adenopathy by size criteria. Aorta and inferior vena cava are normal in size. Atherosclerotic calcification of the abdominal aorta without evidence of aneurysm. Miscellaneous: No ventral hernias. PELVIS: Genitourinary: Bladder wall thickness is normal. Miscellaneous: Bilateral inguinal hernias containing fat without bowel involvement. Bones: No suspicious bony lesions. No vertebral body compression fractures. IMPRESSION: Nondisplaced left lateral seventh rib fracture associated with left-sided pleural effusion and compre ssive atelectasis. No evidence of splenic injury. Reviewed by: Donn Mercer MD on 12/07/2021 3:17 PM AKDT Approved by: Donn Mercer MD on 12/07/2021 3:17 PM AKDT Station ID: [id number]
[2021-12-07] MEDS: KETOROLAC 15 MG/ML VIAL IVP STA (16:27)
[2021-12-07] MEDS: HYDROmorphone 1 MG/ML CARPUJECT IVP STA (16:28)
--- NOTE | 2021-12-07 16:29 | CT Report ---
PROCEDURE: CT chest with contrast INDICATIONS: L chest trauma CONTRAST: IV CONTRAST: Optiray 320 ml: 100 PO CONTRAST: *NO PO CONTRAST TECHNIQUE: After the administration of intravenous contrast, 1 mm axial images were acquired from the pulmonary apices through the posterior costophrenic angles. Axial 5 mm soft tissue kernel reconstructions were performed as well as 8 mm axial MIP and coronal and sagittal 5 mm reformations. For radiation dose reduction, the following was used: automated exposure control, adjustment of mA and/or kV according to patient size. COMPARISON: None. FINDINGS: Image quality: Excellent. Lungs and pleura: No acute air space opacities. No pleural effusions or pneumothorax. Central and peripheral airways are patent and normal in caliber. Mediastinum: Heart size is enlarged. No pericardial effusion. No mediastinal or hilar adenopathy b y size criteria. Thoracic aorta and central pulmonary arteries are normal in size. Esophagus is nor mal in caliber. No hiatal hernia. Bones and chest wall: Left lateral fifth, sixth, seventh and eighth rib fractures present. The sevent h rib fracture is slightly displaced. Additional posterior sixth, seventh displaced rib fractures. No ndisplaced posterior eighth rib fracture. Associated left-sided atelectasis and/or pulmonary contusio n noted with small left pleural effusion. No pneumothorax. Thoracic spine intact. Abdomen: Visualized upper abdominal solid organs appear normal. Upper abdominal bowel loops are nor mal in caliber. Hepatic fatty infiltration IMPRESSION: Left lateral fifth through eighth rib fractures and additional left posterior seventh and eighth disp laced rib fractures. Associated left-sided pleural effusion and probable small pulmonary contusion. No pneumothorax. Reviewed by: Donn Mercer MD on 12/07/2021 3:28 PM AKDT Approved by: Donn Mercer MD on 12/07/2021 3:28 PM AKDT Station ID: [id number]
[2021-12-07 20:50] VITALS: BP 98/60
== END 2021-12-07 20:50 | disposition short-term general hospital (02) ==
LOC: EDUNIT# → ED 13:50
DX: T79.6XXA Traumatic ischemia of muscle, initial encounter (principal); S22.5XXA Flail chest, initial encounter for closed fracture; S27.321A Contusion of lung, unilateral, initial encounter; S27.1XXA Traumatic hemothorax, initial encounter; W19.XXXA Unspecified fall, initial encounter; Y93.89 Activity, other specified; Y92.009 Unspecified place in unspecified non-institutional (private) residence as the place of occurrence of the external cause; N17.9 Acute kidney failure, unspecified; Z20.822 Contact with and (suspected) exposure to COVID-19
CPT/HCPCS: 36415; 71260; 74177; 80053; 82550; 85025; 87635; 96361; 96374; 96375; 99283; 99285; J1170

== ENCOUNTER 2021-12-07 20:49 | Outpatient (CLI) | payer MEDICARE, OTHER | END 2021-12-07 20:50 | disposition short-term general hospital (02) | LOC: EMS 20:49 | PROVIDERS: ATTEND Emergency Medicine | DX: S22.5XXA Flail chest, initial encounter for closed fracture (principal); W01.198A Fall on same level from slipping, tripping and stumbling with subsequent striking against other object, initial encounter; Y92.002 Bathroom of unspecified non-institutional (private) residence as the place of occurrence of the external cause | CPT/HCPCS: A0425; A0428 ==